=== PATIENT | female | born 1940 | race Hispanic/Latino ===

== ENCOUNTER 2018-12-23 02:01 | Emergency (ER) | payer MEDICARE ==
[~2018-12-23] VITALS: Ht 157.5 cm; Wt 108.9 kg
[~2018-12-23 02:01] MED LIST: ATIVAN0.5 MG PO; COUMADIN2.5 MG PO; METOPROLOL SUCC25 MG PO; NORVASC5 MG PO; PROTONIX40 MG/ML PO; TYLENOL PO; ZEGERID 20 MG1 EACH PO
[2018-12-23] MEDS ORDERED: ONDANSETRON HCL INJ 2MG/ML 2ML 2 MG/ML VIAL IV STA (02:10)
[2018-12-23] MEDS ORDERED: DIATRIZOATE MEGL/DIATRIZOA SOD 30 ML BTL PO ONE (02:35)
[2018-12-23 02:48] LABS: BASOPHILS # (AUTO) 0.1 (0.0-0.1); BASOPHILS % 0.7 % (0.0-1.0); EOSINOPHILS # (AUTO) 0.2 (0.0-0.4); EOSINOPHILS % 2.6 % (0.0-6.0); HEMATOCRIT 35.3 % (34.2-44.1); HEMOGLOBIN 12.3 g/dL (12.0-16.0); LYMPHOCYTES # (AUTO) 1.5 (1.0-3.2); LYMPHOCYTES % 19.2 % (18.0-39.1); MEAN CORPUSCULAR HEMOGLOBIN 32.4 pg (28-32); MEAN CORPUSCULAR HGB CONC 34.8 g/dL (31-35); MEAN CORPUSCULAR VOLUME 92.9 fL (81-99); MONOCYTES # (AUTO) 0.8 (0.2-0.8); MONOCYTES % 10.2 % (4.4-11.3); NEUTROPHILS # (AUTO) 5.4 (2.1-6.9); NEUTROPHILS % 66.9 % (38.7-80.0); PLATELET COUNT 170 x10e3/uL (140-360); RED CELL DISTRIBUTION WIDTH 12.7 % (11.7-14.4)
[2018-12-23 02:54] LABS: PARTIAL THROMBOPLASTIN TIME 63.8 seconds (23.8-35.5)
[2018-12-23 02:59] LABS: INR 2.66; PROTHROMBIN TIME 30.3 seconds (11.9-14.5)
[2018-12-23 03:00] LABS: ALANINE AMINOTRANSFERASE 13 IU/L (0-55); ALBUMIN 3.4 g/dL (3.5-5.0); ALBUMIN/GLOBULIN RATIO 1.2 (0.8-2.0); ALKALINE PHOSPHATASE 108 IU/L (40-150); AMYLASE 23 U/L (25-125); ANION GAP 13.2 mmol/L (8-16); BLOOD UREA NITROGEN 10 mg/dL (7-26); BUN/CREATININE RATIO 14 (6-25); CALCIUM 8.8 mg/dL (8.4-10.2); CARBON DIOXIDE 26 mmol/L (22-29); CHLORIDE 103 mmol/L (98-107); CREATININE, SERUM 0.69 mg/dL (0.57-1.11); EST GLOMERULAR FILTRATION RATE > 60 ML/MIN (60-); GLUCOSE 128 mg/dL (74-118); LIPASE 10 U/L (8-78); POTASSIUM 3.2 mmol/L (3.5-5.1); SODIUM 139 mmol/L (136-145)
[2018-12-23] MEDS ORDERED: SODIUM CHLORIDE 0.9% 50ML 50 ML ONE (03:26)
[2018-12-23] MEDS ORDERED: IOPAMIDOL 370 MG/ML 200 ML INFUS..BTL INJ ONE (03:26)
[2018-12-23 03:49] LABS: CLARITY,URINE HAZY (CLEAR); COLOR,URINE YELLOW (YELLOW)
[2018-12-23 03:50] LABS: BACTERIA,URINE RARE /HPF; BILIRUBIN,URINE NEGATIVE (NEGATIVE); EPITHELIAL CELLS,URINE FEW /LPF; KETONES,URINE NEGATIVE (NEGATIVE); LEUKOCYTE ESTERASE ,URINE TRACE (NEGATIVE); NITRITE,URINE NEGATIVE (NEGATIVE); PROTEIN,URINE DIPSTICK TRACE (NEGATIVE); RBC,URINE 0-5 /HPF (0-5); TRANSITIONAL EPI CELLS,URINE FEW; URINE UROBILINOGEN 0.2 mg/dL (0.2 - 1); WBC,URINE (MAN) 0-5 /HPF (0-5)
--- NOTE | 2018-12-23 04:01 | NUR ---
PATIENT ROUNDS- PATIENT IN BED IN NO DISTRESS, CALL BUTTON IN REACH, BED LOW
--- NOTE | 2018-12-23 04:12 | Diagnostic Imaging Report ---
EXAM: CT Abdomen and Pelvis WITH contrast INDICATION: ^left abdominal pain ^[id number] ^0330 ^Y COMPARISON: CT dated 03/08/2014 TECHNIQUE: Abdomen and pelvis were scanned utilizing a multidetector helical scanner from the lung base to the pubic symphysis after administration of IV contrast. Coronal and sagittal reformations were obtained. Dose modulation, iterative reconstruction, and/or weight based adjustment of the mA/kV was utilized to reduce the radiation dose to as low as reasonably achievable. Routine protocol was performed. Scan was performed when during portal venous phase. IV CONTRAST: 100 mL of Isovue-370 ORAL CONTRAST: Gastroview COMPLICATIONS: None RADIATION DOSE: Total DLP: 868.71 mGy*cm Estimated effective dose: (DLP x 0.015 x size factor) mSv CTDIvol has been reviewed. It is below the limits set by the Radiation Protocol Committee (RPC). FINDINGS: LINES and TUBES: None. LOWER THORAX: Cardiomegaly. Otherwise, unremarkable. HEPATOBILIARY: No focal hepatic lesions. No biliary ductal dilation. GALLBLADDER: Absent. SPLEEN: Multiple hypodensities are again seen. No splenomegaly. PANCREAS: No focal masses or ductal dilatation. Fatty involution of the pancreas. ADRENALS: No adrenal nodules KIDNEYS/URETERS: Kidneys enhance symmetrically. No hydronephrosis. No cystic or solid mass lesions. No stones. GI TRACT: No abnormal distention, wall thickening, or evidence of bowel obstruction. Scattered colonic diverticula with mild pericolonic fat stranding in left lower quadrant/upper pelvis (series 2, image 70). Appendix is normal. PELVIC ORGANS/BLADDER: Unremarkable. LYMPH NODES: No lymphadenopathy. VESSELS: Unremarkable. Infrarenal IVC filter in place. PERITONEUM / RETROPERITONEUM: No free air or fluid. BONES: Unchanged mild anterior wedging of L3 vertebral body. Small fat-containing umbilical hernia with a new nodule within hernia sac, measuring 1.6 cm (series 2, image 64). SOFT TISSUES: Unremarkable. IMPRESSION: 1. Colonic diverticulosis with uncomplicated mild left lower quadrant diverticulitis. 2. Again seen multiple indeterminate splenic hypodensities. 3. New umbilical nodule, which can be further evaluated with ultrasound or fine needle aspiration. Signed by: Dr. Zach Devries MD on 12/23/2018 4:09 AM
== END 2018-12-23 04:38 | disposition home or self-care (01) ==
LOC: ER 02:01
DX: R10.32 Left lower quadrant pain (principal); R11.2 Nausea with vomiting, unspecified; K57.32 Diverticulitis of large intestine without perforation or abscess without bleeding; Z86.718 Personal history of other venous thrombosis and embolism
CPT/HCPCS: 36415; 74177; 80053; 81001; 82150; 83690; 85025; 85610; 85730; 99284; Q9967

== ENCOUNTER 2020-02-11 08:20 | Emergency (ER) | payer MEDICARE ==
[~2020-02-11] VITALS: Ht 157.5 cm; Wt 108.9 kg
--- OUTSIDE RECORDS SUMMARY | 2020-02-11 08:23 | XMS REPORT ---
Author Author [facility] Address Unknown Phone Unavailable Care Team Providers Care Civil Manager Name Role Phone Bernice COX Unavailable Unavailable Problems This patient has no known problems. Allergies, Adverse Reactions, Alerts This patient has no known allergies or adverse reactions. Medications This patient has no known medications. Results Test Description Test Time Test Comments Text Results Atomic Results Result Comments CT ABDOMEN/PELVIS W 2018-12-23 03:54:00 [facility] [address] [address] Patient Name: SHAR BARRETO MR #: [id number] : 1940 Age/Sex: 78/F Req #: [id number] Adm Physician: Ordered by: BLADIMIR COX MD Report #: [id number] Location: ER Room/Bed: Procedure: [id number] CT/CT ABDOMEN/PELVIS W Exam Date: 12/23/18 Exam Time: 033 REPORT STATUS: Signed EXAM: CT Abdomen and Pelvis WITH contrast INDICATION: left abdominal pain [id number] 0330 Y COMPARISON: CT dated 03/08/2014 TECHNIQUE: Abdomen and pelvis were scanned utilizing a multidetector helical scanner from the lung base to the pubic symphysis after administration of IV contrast. Coronal and sagittal reformations were obtained. Dose modulation, iterative reconstruction, and/or weight based adjustment of the mA/kV was utilized to reduce the radiation dose to as low as reasonably achievable. Routine protocol was performed. Scan was performed when during portal venous phase. IV CONTRAST: 100 mL of Isovue-370 ORAL CONTRAST: Gastroview COMPLICATIONS: None RADIATION DOSE: Total DLP: 868.71 mGy*cm Estimated effective dose: (DLP x 0.015 x size factor) mSv CTDIvol has been reviewed. It is below the limits set by the Radiation Protocol Committee (RPC). FINDINGS: LINES and TUBES: None. LOWER THORAX: Cardiomegaly. Otherwise, unremark able. HEPATOBILIARY: No focal hepatic lesions. No biliary ductal dilation. GALLBLADDER: Absent. SPLEEN: Multiple hypodensities are again seen. No splenomegaly. PANCREAS: No focal masses or ductal dilatation. Fatty involution of the pancreas. ADRENALS: No adrenal nodules KIDNEYS/URETERS: Kidneys enhance symmetrically. No hydronephrosis. No cystic or solid mass lesions. No stones. GI TRACT: No abnormal distention, wall thickening, or evidence of bowel obstruction. Scattered colonic diverticula with mild pericolonic fat stranding in left lower quadrant/upper pelvis (series 2, image 70). Appendix is normal. PELVIC ORGANS/BLADDER: Unremarkable. LYMPH NODES: No lymphadenopathy. VESSELS: Unremarkable. Infrarenal IVC filter in place. PERITONEUM / RETROPERITONEUM: No free air or fluid. BONES: Unchanged mild anterior wedging of L3 vertebral body. Small fat-containing umbilical hernia with a new nodule within hernia sac, measuring 1.6 cm (series 2, image 64). SOFT TISSUES: Unremarkable. IMPRESSION: 1. Colonic diverticulosis with uncomplicated mild left lower quadrant diverticulitis. 2. Again seen multiple indeterminate splenic hypodensities. 3. New umbilical nodule, which can be further evaluated with ultrasound or fine needle aspiration. Signed by: Dr. Zach Devries MD on 12/23/2018 4:09 AM Dictated By: ZACH DEVRIES MD 8 Transcribed By: ALEXANDER on 12/23/18408 COPY TO: BLADIMIR COX MD
[2020-02-11 08:58] LABS: BASOPHILS # (AUTO) 0.1 (0.0-0.1); BASOPHILS % 0.7 % (0.0-1.0); EOSINOPHILS # (AUTO) 0.2 (0.0-0.4); EOSINOPHILS % 2.6 % (0.0-6.0); HEMATOCRIT 42.7 % (34.2-44.1); HEMOGLOBIN 14.5 g/dL (12.0-16.0); LYMPHOCYTES # (AUTO) 2.3 (1.0-3.2); LYMPHOCYTES % 30.2 % (18.0-39.1); MEAN CORPUSCULAR HEMOGLOBIN 31.7 pg (28-32); MEAN CORPUSCULAR VOLUME 93.2 fL (81-99); MONOCYTES # (AUTO) 0.7 (0.2-0.8); MONOCYTES % 8.9 % (4.4-11.3); NEUTROPHILS # (AUTO) 4.4 (2.1-6.9); NEUTROPHILS % 57.5 % (38.7-80.0); PLATELET COUNT 195 x10e3/uL (140-360); RED BLOOD COUNT 4.58 x10e6/uL (3.6-5.1)
[2020-02-11 09:03] LABS: CLARITY,URINE SL CLOUDY (CLEAR); COLOR,URINE YELLOW (YELLOW)
[2020-02-11 09:04] LABS: BILIRUBIN,URINE SMALL (NEGATIVE); KETONES,URINE NEGATIVE (NEGATIVE); LEUKOCYTE ESTERASE ,URINE NEGATIVE (NEGATIVE); NITRITE,URINE NEGATIVE (NEGATIVE); PROTEIN,URINE DIPSTICK 2+ (NEGATIVE); URINE UROBILINOGEN 0.2 mg/dL (0.2 - 1)
[2020-02-11 09:14] LABS: BACTERIA,URINE MODERATE /HPF; EPITHELIAL CELLS,URINE MANY /LPF; RBC,URINE 0-5 /HPF (0-5)
[2020-02-11 09:17] LABS: ALANINE AMINOTRANSFERASE 13 IU/L (0-55); ALBUMIN 3.7 g/dL (3.5-5.0); ALBUMIN/GLOBULIN RATIO 1.1 (0.8-2.0); ALKALINE PHOSPHATASE 127 IU/L (40-150); ANION GAP 12.5 mmol/L (8-16); BLOOD UREA NITROGEN 15 mg/dL (7-26); BUN/CREATININE RATIO 20 (6-25); CARBON DIOXIDE 29 mmol/L (22-29); CHLORIDE 105 mmol/L (98-107); CREATININE, SERUM 0.75 mg/dL (0.57-1.11); EST GLOMERULAR FILTRATION RATE > 60 ML/MIN (60-); GLUCOSE 112 mg/dL (74-118); POTASSIUM 3.5 mmol/L (3.5-5.1); SODIUM 143 mmol/L (136-145)
[2020-02-11] MEDS ORDERED: PANTOPRAZOLE 40 MG 10ML VIAL IV STA (09:28)
[2020-02-11] MEDS ORDERED: ONDANSETRON HCL INJ 2MG/ML 2ML 2 MG/ML VIAL IV STA (09:28)
[2020-02-11] MEDS ORDERED: SODIUM CHLORIDE 0.9% 1000ML 1,000 ML IV SCH (09:30)
--- NOTE | 2020-02-11 10:28 | Diagnostic Imaging Report ---
EXAM: CT Abdomen and Pelvis WITH contrast INDICATION: Right lower quadrant abdominal pain, query appendicitis. ^R/O APPY ^[id number] ^0953 COMPARISON: CT abdomen/pelvis 12/23/2018. TECHNIQUE: Abdomen and pelvis were scanned utilizing a multidetector helical scanner from the lung base to the pubic symphysis after administration of IV contrast. Coronal and sagittal reformations were obtained. Dose modulation, iterative reconstruction, and/or weight based adjustment of the mA/kV was utilized to reduce the radiation dose to as low as reasonably achievable. Routine protocol was performed. Scan was performed when during portal venous phase. IV CONTRAST: 100 mL of Isovue-370 ORAL CONTRAST: None COMPLICATIONS: None RADIATION DOSE: Total DLP: 860.3 mGy*cm Estimated effective dose: (DLP x 0.015 x size factor) mSv CTDIvol has been reviewed. It is below the limits set by the Radiation Protocol Committee (RPC). FINDINGS: LINES and TUBES: None. LOWER THORAX: Mild cardiomegaly. Small hiatal hernia. HEPATOBILIARY: No focal hepatic lesions. No biliary ductal dilation. GALLBLADDER: Absent. SPLEEN: Multiple hypodensities are again seen. No splenomegaly. PANCREAS: No focal masses or ductal dilatation. Fatty atrophy. ADRENALS: No adrenal nodules KIDNEYS/URETERS: Kidneys enhance symmetrically. No hydronephrosis. No cystic or solid mass lesions. No stones. GI TRACT: No abnormal distention, wall thickening, or evidence of bowel obstruction. Scattered colonic diverticula with trace perisigmoid colonic stranding pm series 2, image 70. Appendix is normal. PELVIC ORGANS/BLADDER: Partially decompressed. LYMPH NODES: No lymphadenopathy. VESSELS: Infrarenal IVC filter in place. PERITONEUM / RETROPERITONEUM: No free air or fluid. BONES: Interval development of mild loss of anterior vertebral body height at L2. Unchanged mild anterior wedging of L3 vertebral body. Small fat-containing umbilical hernia with an enlarging nodule, measuring 2.5 cm, previously 1.4 cm. SOFT TISSUES: Unremarkable. IMPRESSION: Normal appendix. Sigmoid colonic diverticulosis with minimal surrounding stranding, which may represent mild diverticulitis. Interval development of mild loss of anterior vertebral body height at L2. Suggest clinical correlation. Again seen multiple indeterminate splenic hypodensities. Enlarging umbilical nodule, which can be further evaluated with ultrasound or fine needle aspiration. Signed by: Dr. Janusz Barbour MD on 02/11/2020 10:25 AM
[2020-02-11 10:42] VITALS: BP 145/53
[2020-02-11] MEDS ORDERED: KETOROLAC TROMETHAMINE 30 MG/ML VIAL IV STA (11:04)
[2020-02-11] MEDS ORDERED: KETOROLAC TROMETHAMINE 30 MG/ML VIAL IM STA (11:05)
[2020-02-11] MEDS ORDERED: SODIUM CHLORIDE 0.9% 50ML 50 ML ONE (12:56)
[2020-02-11] MEDS ORDERED: IOPAMIDOL 370 MG/ML 200 ML INFUS..BTL INJ ONE (12:57)
== END 2020-02-11 10:53 | disposition home or self-care (01) ==
LOC: ER 08:20
DX: R10.31 Right lower quadrant pain (principal); R11.0 Nausea; R10.84 Generalized abdominal pain; K57.31 Diverticulosis of large intestine without perforation or abscess with bleeding
CPT/HCPCS: 36415; 74177; 80053; 81001; 85025; 99284; C9113; J1885; J2405; J7030; Q9967

== ENCOUNTER 2020-02-24 16:01 | Emergency (ER) | payer MEDICARE ==
[~2020-02-24] VITALS: Ht 157.5 cm; Wt 108.9 kg
[2020-02-24] MEDS ORDERED: SODIUM CHLORIDE 0.9% 500ML 500 ML IV STA (17:16)
[2020-02-24] MEDS ORDERED: ONDANSETRON HCL INJ 2MG/ML 2ML 2 MG/ML VIAL IV STA (17:16)
[2020-02-24 17:29] LABS: BASOPHILS # (AUTO) 0.1 (0.0-0.1); BASOPHILS % 0.6 % (0.0-1.0); EOSINOPHILS # (AUTO) 0.2 (0.0-0.4); EOSINOPHILS % 2.5 % (0.0-6.0); HEMATOCRIT 39.6 % (34.2-44.1); HEMOGLOBIN 13.1 g/dL (12.0-16.0); LYMPHOCYTES # (AUTO) 2.5 (1.0-3.2); LYMPHOCYTES % 29.2 % (18.0-39.1); MEAN CORPUSCULAR HEMOGLOBIN 31.5 pg (28-32); MEAN CORPUSCULAR HGB CONC 33.1 g/dL (31-35); MEAN CORPUSCULAR VOLUME 95.2 fL (81-99); MONOCYTES # (AUTO) 0.8 (0.2-0.8); MONOCYTES % 8.9 % (4.4-11.3); NEUTROPHILS # (AUTO) 5.1 (2.1-6.9); NEUTROPHILS % 58.5 % (38.7-80.0); PLATELET COUNT 222 x10e3/uL (140-360); RED BLOOD COUNT 4.16 x10e6/uL (3.6-5.1); RED CELL DISTRIBUTION WIDTH 13.1 % (11.7-14.4)
[2020-02-24 17:38] LABS: CLARITY,URINE HAZY (CLEAR); COLOR,URINE YELLOW (YELLOW); LEUKOCYTE ESTERASE ,URINE NEGATIVE (NEGATIVE); NITRITE,URINE NEGATIVE (NEGATIVE); PROTEIN,URINE DIPSTICK TRACE (NEGATIVE)
[2020-02-24 17:39] LABS: BILIRUBIN,URINE NEGATIVE (NEGATIVE); KETONES,URINE NEGATIVE (NEGATIVE); URINE UROBILINOGEN 0.2 mg/dL (0.2 - 1)
[2020-02-24 17:40] LABS: ALANINE AMINOTRANSFERASE 14 IU/L (0-55); ALBUMIN 3.5 g/dL (3.5-5.0); ALBUMIN/GLOBULIN RATIO 1.1 (0.8-2.0); ALKALINE PHOSPHATASE 106 IU/L (40-150); ANION GAP 13.4 mmol/L (8-16); BLOOD UREA NITROGEN 18 mg/dL (7-26); BUN/CREATININE RATIO 21 (6-25); CALCIUM 9.2 mg/dL (8.4-10.2); CARBON DIOXIDE 29 mmol/L (22-29); CHLORIDE 104 mmol/L (98-107); CREATININE, SERUM 0.86 mg/dL (0.57-1.11); EST GLOMERULAR FILTRATION RATE > 60 ML/MIN (60-); GLUCOSE 135 mg/dL (74-118); POTASSIUM 3.4 mmol/L (3.5-5.1); SODIUM 143 mmol/L (136-145)
[2020-02-24 17:45] LABS: BACTERIA,URINE FEW /HPF; EPITHELIAL CELLS,URINE FEW /LPF; RBC,URINE 0-5 /HPF (0-5); WBC,URINE (MAN) 0-5 /HPF (0-5)
== END 2020-02-24 18:54 | disposition home or self-care (01) ==
LOC: ER 16:01
DX: R10.31 Right lower quadrant pain (principal); R10.32 Left lower quadrant pain; M54.5 Low back pain; G89.29 Other chronic pain; R11.2 Nausea with vomiting, unspecified; N30.90 Cystitis, unspecified without hematuria; I10 Essential (primary) hypertension; K21.9 Gastro-esophageal reflux disease without esophagitis; Z86.718 Personal history of other venous thrombosis and embolism
CPT/HCPCS: 36415; 80053; 81001; 85025; 87086; 99284; J2405; J7040

== ENCOUNTER 2021-03-16 14:16 | Inpatient (IN) | payer MEDICARE ==
[~2021-03-16] VITALS: Ht 157.5 cm; Wt 108.2 kg
[2021-03-16 17:01] LABS: BASOPHILS % 0.4 % (0.0-1.0); EOSINOPHILS # (AUTO) 0.1 (0.0-0.4); EOSINOPHILS % 0.6 % (0.0-6.0); HEMATOCRIT 38.7 % (34.2-44.1); HEMOGLOBIN 12.9 g/dL (12.0-16.0); MEAN CORPUSCULAR HEMOGLOBIN 31.7 pg (28-32); MEAN CORPUSCULAR HGB CONC 33.3 g/dL (31-35); MEAN CORPUSCULAR VOLUME 95.1 fL (81-99); MONOCYTES # (AUTO) 0.7 (0.2-0.8); MONOCYTES % 6.3 % (4.4-11.3); NEUTROPHILS # (AUTO) 9.1 (2.1-6.9); NEUTROPHILS % 83.4 % (38.7-80.0); PLATELET COUNT 187 x10e3/uL (140-360); RED BLOOD COUNT 4.07 x10e6/uL (3.6-5.1); RED CELL DISTRIBUTION WIDTH 13.1 % (11.7-14.4)
[2021-03-16 17:25] LABS: ALBUMIN 3.5 g/dL (3.5-5.0); ALBUMIN/GLOBULIN RATIO 1.1 (0.8-2.0); ANION GAP 15.3 mmol/L (8-16); CALCIUM 8.9 mg/dL (8.4-10.2); CREATININE, SERUM 0.98 mg/dL (0.57-1.11); POTASSIUM 4.3 mmol/L (3.5-5.1)
[2021-03-16] MEDS ORDERED: ASPIRIN 81 MG CHEW TAB PO ONE (18:00)
[2021-03-16 19:38] LABS: CREATINE KINASE MB 0.5 ng/mL (0-5.0)
[2021-03-16 20:55] LABS: CLARITY,URINE CLEAR (CLEAR); COLOR,URINE YELLOW (YELLOW)
[2021-03-16 20:56] LABS: KETONES,URINE TRACE (NEGATIVE); LEUKOCYTE ESTERASE ,URINE NEGATIVE (NEGATIVE); NITRITE,URINE NEGATIVE (NEGATIVE); PROTEIN,URINE DIPSTICK 1+ (NEGATIVE); URINE UROBILINOGEN 0.2 mg/dL (0.2 - 1)
[2021-03-16 21:15] LABS: BACTERIA,URINE FEW /HPF; EPITHELIAL CELLS,URINE MODERATE /LPF
[2021-03-16] MEDS ORDERED: MAGNESIUM/ALUMINUM/SIMETHICONE 30 ML UDC ONE (21:15)
[2021-03-16] MEDS ORDERED: LIDOCAINE VISC 2% SOLN 15 ML UDC PO ONE (21:15)
[2021-03-16] MEDS ORDERED: LIDOCAINE VISC 2% SOLN 15 ML UDC ONE (21:15)
[2021-03-16] MEDS ORDERED: BELLADONNA ALK/PHENOBARBITAL 5 ML UDC PO ONE (21:15)
[2021-03-16] MEDS ORDERED: MAGNESIUM/ALUMINUM/SIMETHICONE 30 ML UDC PO ONE (21:15)
[2021-03-16] MEDS ORDERED: DONNATAL/LIDOCAINE/MAALOX 30 ML SUSP PO ONE (21:15)
[2021-03-16] MEDS ORDERED: BELLADONNA ALK/PHENOBARBITAL 5 ML UDC ONE (21:15)
[2021-03-16 21:16] LABS: RBC,URINE 0-5 /HPF (0-5)
[2021-03-16] MEDS ORDERED: SODIUM CHLORIDE 0.9% 1000ML 1,000 ML ONE (22:32)
[2021-03-16] MEDS ORDERED: IOPAMIDOL 370 MG/ML 200 ML INFUS..BTL INJ ONE (22:35)
[2021-03-16] MEDS ORDERED: SODIUM CHLORIDE 0.9% 50ML 50 ML ONE (22:35)
[2021-03-16] MEDS ORDERED: DIATRIZOATE MEGL/DIATRIZOA SOD 30 ML BTL PO ONE (22:46)
[2021-03-17 02:23] LABS: CREATINE KINASE MB 0.9 ng/mL (0-5.0)
[2021-03-17] MEDS ORDERED: ASPIRIN 81 MG CHEW TAB PO ONE (02:45)
[2021-03-17] MEDS ORDERED: LORAZEPAM 1 MG TAB PO ONE (04:00)
[2021-03-17 07:34] LABS: INR 2.59; PROTHROMBIN TIME 28.5 seconds (11.9-14.5)
[2021-03-17 08:51] LABS: CREATINE KINASE MB 2.7 ng/mL (0-5.0)
[2021-03-17] MEDS: PANTOPRAZOLE SOD 40 MG TABEC PO SCH (10:14)
[2021-03-17] MEDS: METOPROLOL SUCCINATE 25 MG TAB XL PO SCH (10:14)
[2021-03-17] MEDS: AMLODIPINE BESYLATE 5 MG TAB PO SCH (10:14)
[2021-03-17] MEDS ORDERED: OXYBUTYNIN CHLO15 MG PO (10:15)
[2021-03-17] MEDS ORDERED: OXYBUTYNIN CHLORIDE PO SCH (10:30)
[2021-03-17] MEDS: OXYBUTYNIN CHLORIDE XL 5 MG TAB PO SCH (11:21)
[2021-03-17 13:58] VITALS: BP 136/57
[2021-03-17 14:02] VITALS: BP 136/57
[2021-03-17 14:37] LABS: CREATINE KINASE MB 3.3 ng/mL (0-5.0)
[2021-03-17 16:15] VITALS: BP 89/38
[2021-03-17 16:16] VITALS: BP 110/38
[2021-03-17] MEDS ORDERED: WARFARIN SOD 2.5 MG TAB PO SCH (17:00)
[2021-03-17 18:52] LABS: CREATINE KINASE MB 2.9 ng/mL (0-5.0)
[2021-03-17 20:10] VITALS: BP 136/53
[2021-03-17] MEDS: LORAZEPAM 0.5 MG TAB PO PRN (23:41)
[2021-03-17 23:52] VITALS: BP 147/64
[2021-03-18] VITALS (8 sets, daily range): BP systolic 111–147; BP diastolic 43–64
[2021-03-18 05:18] LABS: CHOL/HDL RATIO 3.2 (3.0-3.6)
[2021-03-18] MEDS: PANTOPRAZOLE SOD 40 MG TABEC PO SCH (08:34)
[2021-03-18] MEDS: AMLODIPINE BESYLATE 5 MG TAB PO SCH (08:35)
[2021-03-18] MEDS: METOPROLOL SUCCINATE 25 MG TAB XL PO SCH (08:36)
[2021-03-18] MEDS ORDERED: POTASSIUM CHLORIDE 20 MEQ TAB CR PO PRN (13:15)
[2021-03-18] MEDS ORDERED: HYDRALAZINE HCL 20 MG/ML VIAL IV PRN (13:15)
[2021-03-18] MEDS ORDERED: DEXTROSE 50% SYRINGE 50 ML IV PRN (13:15)
[2021-03-18] MEDS ORDERED: ONDANSETRON HCL INJ 2MG/ML 2ML 2 MG/ML VIAL IV PRN (13:15)
[2021-03-18] MEDS ORDERED: ACETAMINOPHEN 325 MG TAB PO PRN (13:15)
[2021-03-18] MEDS ORDERED: DOCUSATE SODIUM 100 MG CAP PO PRN (13:15)
[2021-03-18] MEDS: MIDODRINE 2.5 MG TAB PO SCH (17:12)
[2021-03-18] MEDS: OXYBUTYNIN CHLORIDE XL 5 MG TAB PO SCH (20:21)
[2021-03-18] MEDS: LORAZEPAM 0.5 MG TAB PO PRN (21:25)
[2021-03-19] VITALS (8 sets, daily range): BP systolic 135–157; BP diastolic 51–78
[2021-03-19 04:55] LABS: BASOPHILS % 0.5 % (0.0-1.0); EOSINOPHILS # (AUTO) 0.2 (0.0-0.4); EOSINOPHILS % 3.7 % (0.0-6.0); HEMATOCRIT 35.2 % (34.2-44.1); HEMOGLOBIN 11.8 g/dL (12.0-16.0); LYMPHOCYTES # (AUTO) 1.9 (1.0-3.2); LYMPHOCYTES % 30.6 % (18.0-39.1); MEAN CORPUSCULAR HEMOGLOBIN 31.5 pg (28-32); MEAN CORPUSCULAR HGB CONC 33.5 g/dL (31-35); MEAN CORPUSCULAR VOLUME 93.9 fL (81-99); MONOCYTES # (AUTO) 0.6 (0.2-0.8); MONOCYTES % 9.2 % (4.4-11.3); NEUTROPHILS # (AUTO) 3.5 (2.1-6.9); NEUTROPHILS % 55.5 % (38.7-80.0); PLATELET COUNT 149 x10e3/uL (140-360); RED BLOOD COUNT 3.75 x10e6/uL (3.6-5.1); RED CELL DISTRIBUTION WIDTH 12.6 % (11.7-14.4)
[2021-03-19 05:19] LABS: ANION GAP 11.5 mmol/L (8-16); BLOOD UREA NITROGEN 16 mg/dL (7-26); BUN/CREATININE RATIO 25 (6-25); CALCIUM 8.4 mg/dL (8.4-10.2); CARBON DIOXIDE 28 mmol/L (22-29); CHLORIDE 105 mmol/L (98-107); CREATININE, SERUM 0.64 mg/dL (0.57-1.11); EST GLOMERULAR FILTRATION RATE > 60 ML/MIN (60-); GLUCOSE 105 mg/dL (74-118); POTASSIUM 3.5 mmol/L (3.5-5.1); SODIUM 141 mmol/L (136-145)
[2021-03-19] MEDS ORDERED: PANTOPRAZOLE SOD 40 MG TABEC PO SCH (07:30)
[2021-03-19] MEDS: MIDODRINE 2.5 MG TAB PO SCH ×3 (09:05→16:18)
[2021-03-19] MEDS: PANTOPRAZOLE SOD 40 MG TABEC PO SCH (09:05)
[2021-03-19] MEDS: METOPROLOL SUCCINATE 25 MG TAB XL PO SCH (09:06)
[2021-03-19] MEDS: AMLODIPINE BESYLATE 5 MG TAB PO SCH (09:06)
[2021-03-19] MEDS ORDERED: MIDAZOLAM HCL 2 MG/2 ML VIAL ONE (09:15)
[2021-03-19] MEDS ORDERED: SODIUM CHLORIDE 0.9% 1000ML 0 ML ONE (09:16)
[2021-03-19] MEDS ORDERED: FENTANYL CITRATE/PF 100MCG/2 ML INJ ONE (09:16)
[2021-03-19] MEDS ORDERED: IOPAMIDOL 370 MG/ML 200 ML INFUS..BTL INJ ONE (09:16)
[2021-03-19] MEDS ORDERED: LIDOCAINE HCL 2% LOCAL 20 ML VIAL ONE (09:16)
[2021-03-19] MEDS ORDERED: HEPARIN SOD/SOD CHLORIDE 0 ML ONE (09:16)
[2021-03-19 10:50] LABS: INR 1.74; PROTHROMBIN TIME 21.1 seconds (11.9-14.5)
[2021-03-19] MEDS: OXYBUTYNIN CHLORIDE XL 5 MG TAB PO SCH (21:10)
[2021-03-20] VITALS (14 sets, daily range): BP systolic 107–175; BP diastolic 49–85
[2021-03-20 05:20] LABS: INR 1.4; PROTHROMBIN TIME 17.8 seconds (11.9-14.5)
[2021-03-20] MEDS: PANTOPRAZOLE SOD 40 MG TABEC PO SCH (07:30)
[2021-03-20] MEDS: MIDODRINE 2.5 MG TAB PO SCH ×3 (08:00→16:48)
[2021-03-20] MEDS ORDERED: FENTANYL CITRATE/PF 100MCG/2 ML INJ ONE (08:14)
[2021-03-20] MEDS ORDERED: MIDAZOLAM HCL 2 MG/2 ML VIAL ONE ×2 (08:14→10:30)
[2021-03-20] MEDS ORDERED: LIDOCAINE HCL 2% LOCAL 20 ML VIAL ONE (08:15)
[2021-03-20] MEDS ORDERED: IOPAMIDOL 370 MG/ML 200 ML INFUS..BTL INJ ONE (08:15)
[2021-03-20] MEDS ORDERED: SODIUM CHLORIDE 0.9% 1000ML 1,000 ML ONE (08:15)
[2021-03-20] MEDS ORDERED: HEPARIN SOD/SOD CHLORIDE 2,000 ML ONE (08:15)
[2021-03-20] MEDS: AMLODIPINE BESYLATE 5 MG TAB PO SCH (14:00)
[2021-03-20] MEDS ORDERED: LACTULOSE SYRUP 20 GM/30 ML UDC PO ONE (14:45)
[2021-03-20] MEDS: LORAZEPAM 0.5 MG TAB PO PRN (20:29)
[2021-03-20] MEDS: OXYBUTYNIN CHLORIDE XL 5 MG TAB PO SCH (20:30)
[2021-03-21] VITALS: BP 152/57
[2021-03-21 04:00] VITALS: BP 135/69
[2021-03-21 07:55] VITALS: BP 144/66
[2021-03-21] MEDS: AMLODIPINE BESYLATE 5 MG TAB PO SCH (08:36)
[2021-03-21] MEDS: PANTOPRAZOLE SOD 40 MG TABEC PO SCH (08:36)
[2021-03-21] MEDS: MIDODRINE 2.5 MG TAB PO SCH ×3 (08:36→16:00)
[2021-03-21 10:06] VITALS: BP 144/66
[2021-03-21 12:01] VITALS: BP 149/58
== END 2021-03-21 16:35 | disposition home or self-care (01) | DRG 281 ==
LOC: ER 18:39 → OBSVTOIN 03-17 03:11 → ERHOLD 03-17 03:11 → IMCU 03-17 14:00 → MED/SURG2 03-17 23:30 → MED/SURG 03-19 15:09
PROVIDERS: ADMIT Internal Medicine; ATTEND Internal Medicine
PROC: 4A023N7 Measurement of Cardiac Sampling and Pressure, Left Heart, Percutaneous Approach (ICD-10-PCS; principal; 2021-03-20)
PROC: B2111ZZ Fluoroscopy of Multiple Coronary Arteries using Low Osmolar Contrast (ICD-10-PCS; 2021-03-20)
DX: I21.4 Non-ST elevation (NSTEMI) myocardial infarction (principal); Z68.41 Body mass index [BMI] 40.0-44.9, adult; Z86.718 Personal history of other venous thrombosis and embolism; Z79.01 Long term (current) use of anticoagulants; I10 Essential (primary) hypertension; E11.9 Type 2 diabetes mellitus without complications; E78.5 Hyperlipidemia, unspecified; E66.01 Morbid (severe) obesity due to excess calories; K59.00 Constipation, unspecified; F41.9 Anxiety disorder, unspecified; Z20.822 Contact with and (suspected) exposure to COVID-19
CPT/HCPCS: 36415; 74177; 80048; 80053; 80061; 81001; 82550; 82553; 83036; 84484; 85025; 85610; 93005; 93306; 93454; 99152; 99284; C1887; J2001; J2250; J3010; J7030; Q9967; U0002

== ENCOUNTER 2021-05-15 00:37 | Observation (INO) | payer MEDICARE ==
[2021-05-15] VITALS (8 sets, daily range): BP systolic 139–165; BP diastolic 55–76
[~2021-05-15] VITALS: Ht 157.5 cm; Wt 108.0 kg
[~2021-05-15 00:37] MED LIST changes: +OXYBUTYNIN CHLO15 MG PO
[2021-05-15] MEDS ORDERED: DONNATAL/LIDOCAINE/MAALOX 30 ML SUSP PO STA (00:46)
[2021-05-15] MEDS ORDERED: LIDOCAINE VISC 2% SOLN 15 ML UDC PO ONE (01:00)
[2021-05-15] MEDS ORDERED: MAGNESIUM/ALUMINUM/SIMETHICONE 30 ML UDC PO ONE (01:00)
[2021-05-15] MEDS ORDERED: BELLADONNA ALK/PHENOBARBITAL 5 ML UDC PO SCH (01:00)
[2021-05-15 01:01] LABS: BASOPHILS # (AUTO) 0.1 (0.0-0.1); BASOPHILS % 0.8 % (0.0-1.0); EOSINOPHILS # (AUTO) 0.4 (0.0-0.4); HEMATOCRIT 37.9 % (34.2-44.1); HEMOGLOBIN 12.4 g/dL (12.0-16.0); LYMPHOCYTES # (AUTO) 4.1 (1.0-3.2); LYMPHOCYTES % 43.8 % (18.0-39.1); MEAN CORPUSCULAR HEMOGLOBIN 31.6 pg (28-32); MEAN CORPUSCULAR HGB CONC 32.7 g/dL (31-35); MEAN CORPUSCULAR VOLUME 96.4 fL (81-99); MONOCYTES % 10.4 % (4.4-11.3); NEUTROPHILS # (AUTO) 3.9 (2.1-6.9); NEUTROPHILS % 40.8 % (38.7-80.0); PLATELET COUNT 184 x10e3/uL (140-360); RED BLOOD COUNT 3.93 x10e6/uL (3.6-5.1); RED CELL DISTRIBUTION WIDTH 12.7 % (11.7-14.4)
[2021-05-15 01:24] LABS: CALCIUM 8.8 mg/dL (8.4-10.2); CREATININE, SERUM 0.95 mg/dL (0.57-1.11)
[2021-05-15] MEDS ORDERED: ASPIRIN 325 MG TAB PO ONE (01:30)
[2021-05-15 02:12] LABS: INR 1.92
[2021-05-15] MEDS ORDERED: ENOXAPARIN SODIUM INJ 100 MG/ML SYR SC STA (02:17)
[2021-05-15 02:25] LABS: CREATINE KINASE MB 0.7 ng/mL (0-5.0)
[2021-05-15 10:00] LABS: CREATINE KINASE MB 0.8 ng/mL (0-5.0)
[2021-05-15] MEDS ORDERED: ACETAMINOPHEN 325 MG TAB PO PRN (14:15)
[2021-05-15] MEDS ORDERED: HYDRALAZINE HCL 20 MG/ML VIAL IV PRN (14:15)
[2021-05-15] MEDS ORDERED: ONDANSETRON HCL INJ 2MG/ML 2ML 2 MG/ML VIAL IV PRN (14:15)
[2021-05-15] MEDS ORDERED: CEPACOL SORE THROAT LOZENGES PO PRN (15:30)
[2021-05-15] MEDS ORDERED: WARFARIN SOD 2.5 MG TAB PO SCH (17:00)
[2021-05-15] MEDS: SUCRALFATE 1 GM TAB PO SCH ×2 (17:05→21:01)
[2021-05-15 17:20] LABS: CREATINE KINASE MB 0.8 ng/mL (0-5.0)
[2021-05-15] MEDS ORDERED: LACTULOSE SYRUP 20 GM/30 ML UDC PO PRN (18:00)
[2021-05-15] MEDS ORDERED: OXYBUTYNIN CHLORIDE PO SCH (21:00)
[2021-05-15] MEDS: OXYBUTYNIN CHLORIDE XL 5 MG TAB PO SCH (21:01)
[2021-05-16] VITALS (8 sets, daily range): BP systolic 142–159; BP diastolic 47–70
[2021-05-16] MEDS ORDERED: METOCLOPRAMIDE HCL 10 MG/2ML VIAL IV STA (01:54)
[2021-05-16] MEDS ORDERED: PHYTONADIONE 10 MG/ML AMP IV ONE (02:45)
[2021-05-16] MEDS ORDERED: PHYTONADIONE 10MG/ML 20 MG in SODIUM CHLORIDE 0.9% 100 ML IV ONE (03:00)
[2021-05-16] MEDS ORDERED: SODIUM CHLORIDE 0.9% 100 ML ONE (03:16)
[2021-05-16] MEDS ORDERED: SODIUM CHLORIDE 0.9% 50ML 0 ML ONE (03:17)
[2021-05-16] MEDS: METOCLOPRAMIDE HCL 10 MG/2ML VIAL IV SCH ×4 (04:23→23:33)
[2021-05-16] MEDS: LORAZEPAM 0.5 MG TAB PO PRN (04:53)
[2021-05-16 06:16] LABS: BASOPHILS % 0.6 % (0.0-1.0); EOSINOPHILS # (AUTO) 0.3 (0.0-0.4); EOSINOPHILS % 5.7 % (0.0-6.0); HEMATOCRIT 34.6 % (34.2-44.1); HEMOGLOBIN 11.5 g/dL (12.0-16.0); LYMPHOCYTES # (AUTO) 1.9 (1.0-3.2); LYMPHOCYTES % 34.5 % (18.0-39.1); MEAN CORPUSCULAR HEMOGLOBIN 31.6 pg (28-32); MEAN CORPUSCULAR HGB CONC 33.2 g/dL (31-35); MEAN CORPUSCULAR VOLUME 95.1 fL (81-99); MONOCYTES # (AUTO) 0.5 (0.2-0.8); MONOCYTES % 9.2 % (4.4-11.3); NEUTROPHILS # (AUTO) 2.7 (2.1-6.9); NEUTROPHILS % 49.6 % (38.7-80.0); PLATELET COUNT 148 x10e3/uL (140-360); RED BLOOD COUNT 3.64 x10e6/uL (3.6-5.1); RED CELL DISTRIBUTION WIDTH 12.3 % (11.7-14.4)
[2021-05-16 06:27] LABS: INR 2.06; PROTHROMBIN TIME 24.3 seconds (11.9-14.5)
[2021-05-16 06:44] LABS: ANION GAP 8.5 mmol/L (8-16); CALCIUM 8.5 mg/dL (8.4-10.2); CREATININE, SERUM 0.7 mg/dL (0.57-1.11); POTASSIUM 3.5 mmol/L (3.5-5.1)
[2021-05-16] MEDS: SUCRALFATE 1 GM TAB PO SCH ×4 (07:30→20:23)
[2021-05-16] MEDS: METOPROLOL SUCCINATE 25 MG TAB XL PO SCH (09:00)
[2021-05-16] MEDS: AMLODIPINE BESYLATE 10 MG TAB PO SCH (09:00)
[2021-05-16] MEDS ORDERED: AMLODIPINE BESYLATE 5 MG TAB PO SCH (09:00)
[2021-05-16] MEDS ORDERED: LIDOCAINE HCL 2% LOCAL INJ 5 ML SDV VIAL INJ ONE (12:08)
[2021-05-16] MEDS ORDERED: PROPOFOL IV EMULSION 10 MG/ML 20 ML VIAL ONE (12:08)
[2021-05-16] MEDS ORDERED: FENTANYL CITRATE/PF 100MCG/2 ML INJ ONE (13:54)
[2021-05-16] MEDS ORDERED: KETAMINE HCL INJ 50 MG/ML 10 ML VIAL ONE (13:54)
[2021-05-16 15:24] LABS: INR 1.43; PROTHROMBIN TIME 18.2 seconds (11.9-14.5)
[2021-05-16] MEDS: OXYBUTYNIN CHLORIDE XL 5 MG TAB PO SCH (20:24)
[2021-05-17] MEDS: LORAZEPAM 0.5 MG TAB PO PRN (01:05)
[2021-05-17 01:24] VITALS: BP 141/46
[2021-05-17 05:29] VITALS: BP 128/62
[2021-05-17] MEDS: METOCLOPRAMIDE HCL 10 MG/2ML VIAL IV SCH ×2 (06:00→12:50)
[2021-05-17 08:05] VITALS: BP 139/54
[2021-05-17 08:30] VITALS: BP 139/54
[2021-05-17] MEDS: SUCRALFATE 1 GM TAB PO SCH ×2 (09:08→12:50)
[2021-05-17] MEDS: AMLODIPINE BESYLATE 10 MG TAB PO SCH (09:09)
[2021-05-17] MEDS: METOPROLOL SUCCINATE 25 MG TAB XL PO SCH (09:10)
[2021-05-17 11:44] VITALS: BP 149/64
[2021-05-17] MEDS ORDERED: SUCRALFATE1 GM PO (13:22)
[2021-05-17] MEDS ORDERED: PROTONIX20 MG PO (13:22)
== END 2021-05-17 14:23 | disposition home or self-care (01) ==
LOC: ER 01:07 → ERHOLD 01:59 → MED/SURG3 03:08
PROVIDERS: ADMIT Internal Medicine; ATTEND Internal Medicine
DX: K31.7 Polyp of stomach and duodenum (principal); K44.9 Diaphragmatic hernia without obstruction or gangrene; I10 Essential (primary) hypertension; F41.9 Anxiety disorder, unspecified; F32.9 Major depressive disorder, single episode, unspecified; Z86.718 Personal history of other venous thrombosis and embolism; Z79.01 Long term (current) use of anticoagulants; Z86.711 Personal history of pulmonary embolism; K21.9 Gastro-esophageal reflux disease without esophagitis; E66.01 Morbid (severe) obesity due to excess calories; Z68.41 Body mass index [BMI] 40.0-44.9, adult; D68.9 Coagulation defect, unspecified; R77.8 Other specified abnormalities of plasma proteins
CPT/HCPCS: 36415 ×2; 43239; 43248; 71045; 80048 ×2; 82550; 82553; 84484; 85025 ×2; 85610 ×2; 88305; 88312; 93005; 99284; C9113 ×3; G0378 ×3; J1650; J2001; J2704; J2765 ×2; J3010; J3430; J7050; 43450

== ENCOUNTER 2022-02-07 17:15 | Inpatient (IN) | payer MEDICARE ==
[2022-02-06] MEDS: OXYBUTYNIN CHLORIDE XL 5 MG TAB PO SCH (20:45)
[~2022-02-07] VITALS: Ht 152.4 cm; Wt 114.4 kg
[~2022-02-07 17:15] MED LIST changes: +PROTONIX20 MG PO; +SUCRALFATE1 GM PO
[2022-02-07] MEDS ORDERED: KETOROLAC TROMETHAMINE 30 MG/ML VIAL IV STA (17:29)
[2022-02-07] MEDS ORDERED: ACETAMINOPHEN 325 MG TAB PO ONE (17:30)
[2022-02-07] MEDS ORDERED: KETOROLAC TROMETHAMINE 30 MG/ML VIAL ONE (17:53)
[2022-02-07] MEDS ORDERED: ACETAMINOPHEN 325 MG TAB ONE ×2 (17:53→17:55)
[2022-02-07 17:55] LABS: BASOPHILS # (AUTO) 0.1 (0.0-0.1); BASOPHILS % 0.6 % (0.0-1.0); EOSINOPHILS # (AUTO) 0.2 (0.0-0.4); EOSINOPHILS % 2.1 % (0.0-6.0); HEMATOCRIT 35.4 % (34.2-44.1); HEMOGLOBIN 12.2 g/dL (12.0-16.0); LYMPHOCYTES % 17.9 % (18.0-39.1); MEAN CORPUSCULAR HEMOGLOBIN 31.9 pg (28-32); MEAN CORPUSCULAR HGB CONC 34.5 g/dL (31-35); MEAN CORPUSCULAR VOLUME 92.7 fL (81-99); MONOCYTES # (AUTO) 1.2 (0.2-0.8); MONOCYTES % 10.7 % (4.4-11.3); NEUTROPHILS # (AUTO) 7.5 (2.1-6.9); NEUTROPHILS % 68.5 % (38.7-80.0); PLATELET COUNT 188 x10e3/uL (140-360); RED BLOOD COUNT 3.82 x10e6/uL (3.6-5.1); RED CELL DISTRIBUTION WIDTH 12.6 % (11.7-14.4)
[2022-02-07 18:09] LABS: CLARITY,URINE HAZY (CLEAR); COLOR,URINE YELLOW (YELLOW)
[2022-02-07 18:10] LABS: KETONES,URINE NEGATIVE (NEGATIVE); LEUKOCYTE ESTERASE ,URINE NEGATIVE (NEGATIVE); NITRITE,URINE NEGATIVE (NEGATIVE); PROTEIN,URINE DIPSTICK 2+ (NEGATIVE); URINE UROBILINOGEN 1 mg/dL (0.2 - 1)
[2022-02-07 18:11] LABS: AMORPHOUS SEDIMENT,URINE FEW (FEW); BACTERIA,URINE FEW /HPF; EPITHELIAL CELLS,URINE FEW /LPF; RBC,URINE 0-5 /HPF (0-5)
[2022-02-07 18:24] LABS: ALBUMIN 3.1 g/dL (3.5-5.0); ALBUMIN/GLOBULIN RATIO 0.9 (0.8-2.0); ANION GAP 12.4 mmol/L (8-16); CALCIUM 8.3 mg/dL (8.4-10.2); CREATININE, SERUM 0.83 mg/dL (0.57-1.11); POTASSIUM 3.4 mmol/L (3.5-5.1)
[2022-02-07 18:28] LABS: B-TYPE NATRIURETIC PEPTIDE2 296.8 pg/mL (0-100)
[2022-02-07] MEDS ORDERED: CEFTRIAXONE 1 GM VIAL IV ONE (19:00)
[2022-02-07] MEDS ORDERED: ASPIRIN 325 MG TAB PO ONE (19:00)
[2022-02-07] MEDS ORDERED: SODIUM CHLORIDE 0.9% 1000ML 1,000 ML IV SCH (19:00)
[2022-02-07 20:00] VITALS: BP 132/72
[2022-02-07 20:30] VITALS: BP 132/72
[2022-02-07] MEDS: GUAIFENESIN/CODEINE 5 ML LIQD PO PRN (20:45)
[2022-02-07] MEDS ORDERED: SODIUM CHLORIDE 0.9% 50ML 50 ML ONE ×2 (20:50→21:05)
[2022-02-07] MEDS ORDERED: WARFARIN SOD 2.5 MG TAB PO SCH (21:45)
[2022-02-07] MEDS ORDERED: POTASSIUM CHLORIDE 20 MEQ TAB CR PO STA (21:53)
[2022-02-07] MEDS: CIPROFLOXACIN HCL (OPTH OINT) 3.5 GM TUBE OP SCH (22:00)
[2022-02-07] MEDS ORDERED: LORAZEPAM 0.5 MG TAB PO PRN (22:00)
[2022-02-07] MEDS: OXYBUTYNIN CHLORIDE XL 5 MG TAB PO SCH (22:00)
[2022-02-07] MEDS ORDERED: ACETAMINOPHEN 325 MG TAB PO PRN (22:00)
[2022-02-07] MEDS ORDERED: Vancomycin IV 1 GM in SODIUM CHLORIDE 0.9% 250ML 250 ML IV ONE (22:00)
[2022-02-07] MEDS ORDERED: ONDANSETRON HCL INJ 2MG/ML 2ML 2 MG/ML VIAL IV PRN (22:00)
[2022-02-07] MEDS ORDERED: ALBUTEROL/IPRATROPIUM 3 ML NEB NEB ONE (22:15)
[2022-02-07] MEDS ORDERED: ALBUTEROL/IPRATROPIUM 3 ML NEB NEB PRN (22:15)
[2022-02-08] VITALS (7 sets, daily range): BP systolic 132–166; BP diastolic 52–78
[2022-02-08] MEDS: PIPERACILLIN/TAZOBACTAM 3.375 GM in SODIUM CHLORIDE 0.9% 50ML 50 ML IV SCH ×3 (05:40→22:10)
[2022-02-08 06:36] LABS: BASOPHILS # (AUTO) 0.1 (0.0-0.1); BASOPHILS % 0.5 % (0.0-1.0); EOSINOPHILS # (AUTO) 0.5 (0.0-0.4); EOSINOPHILS % 5.1 % (0.0-6.0); HEMATOCRIT 34.5 % (34.2-44.1); HEMOGLOBIN 11.6 g/dL (12.0-16.0); LYMPHOCYTES # (AUTO) 1.6 (1.0-3.2); LYMPHOCYTES % 16.7 % (18.0-39.1); MEAN CORPUSCULAR HEMOGLOBIN 31.4 pg (28-32); MEAN CORPUSCULAR HGB CONC 33.6 g/dL (31-35); MEAN CORPUSCULAR VOLUME 93.2 fL (81-99); MONOCYTES # (AUTO) 1.2 (0.2-0.8); NEUTROPHILS # (AUTO) 6.3 (2.1-6.9); NEUTROPHILS % 65.3 % (38.7-80.0); PLATELET COUNT 159 x10e3/uL (140-360); RED CELL DISTRIBUTION WIDTH 12.7 % (11.7-14.4)
[2022-02-08 06:52] LABS: ANION GAP 10.9 mmol/L (8-16); CALCIUM 8.1 mg/dL (8.4-10.2); CREATININE, SERUM 0.89 mg/dL (0.57-1.11)
[2022-02-08 06:54] LABS: INR 3.32
[2022-02-08 06:58] LABS: POTASSIUM 2.9 mmol/L (3.5-5.1)
[2022-02-08 07:01] LABS: CHOL/HDL RATIO 3.4 (3.0-3.6); MAGNESIUM 1.4 MG/DL (1.3-2.1)
[2022-02-08] MEDS ORDERED: POTASSIUM CHLORIDE 20 MEQ TAB CR PO STA (07:37)
[2022-02-08] MEDS ORDERED: MAGNESIUM SULFATE 2GM/50ML 50 ML IV ONE (07:45)
[2022-02-08] MEDS: PANTOPRAZOLE SOD 40 MG TABEC PO SCH ×2 (08:19→16:30)
[2022-02-08] MEDS: SUCRALFATE 1 GM TAB PO SCH ×2 (08:19→16:30)
[2022-02-08] MEDS: AMLODIPINE BESYLATE 5 MG TAB PO SCH (08:20)
[2022-02-08] MEDS: METOPROLOL SUCCINATE 25 MG TAB XL PO SCH (08:20)
[2022-02-08] MEDS: AZITHROMYCIN 250 MG TAB PO SCH (08:21)
[2022-02-08] MEDS: CIPROFLOXACIN HCL (OPTH OINT) 3.5 GM TUBE OP SCH ×2 (09:00→17:00)
[2022-02-08] MEDS ORDERED: CEFTRIAXONE 1 GM in SODIUM CHLORIDE 0.9% 50ML 50 ML IV SCH (09:00)
[2022-02-08] MEDS: BENZONATATE 100 MG CAP PO PRN ×2 (09:00)
[2022-02-08] MEDS: POTASSIUM CHLORIDE 20 MEQ TAB CR PO SCH ×2 (10:00→11:28)
[2022-02-08] MEDS ORDERED: LACTULOSE SYRUP 20 GM/30 ML UDC PO PRN (14:00)
[2022-02-08] MEDS ORDERED: FUROSEMIDE INJ 10 MG/ML 2 ML VIAL IV ONE (14:30)
[2022-02-08] MEDS ORDERED: CLONIDINE HCL 0.1 MG TAB PO PRN (17:15)
[2022-02-08] MEDS ORDERED: FUROSEMIDE INJ 10 MG/ML 4 ML VIAL ONE (17:55)
[2022-02-09] VITALS (7 sets, daily range): BP systolic 135–166; BP diastolic 45–98
[2022-02-09] MEDS: BENZONATATE 100 MG CAP PO PRN (02:19)
[2022-02-09] MEDS: PIPERACILLIN/TAZOBACTAM 3.375 GM in SODIUM CHLORIDE 0.9% 50ML 50 ML IV SCH ×3 (05:15→21:33)
[2022-02-09 06:36] LABS: BASOPHILS # (AUTO) 0.1 (0.0-0.1); BASOPHILS % 0.7 % (0.0-1.0); EOSINOPHILS # (AUTO) 0.6 (0.0-0.4); EOSINOPHILS % 7.6 % (0.0-6.0); HEMATOCRIT 33.8 % (34.2-44.1); HEMOGLOBIN 11.3 g/dL (12.0-16.0); LYMPHOCYTES # (AUTO) 1.6 (1.0-3.2); LYMPHOCYTES % 20.8 % (18.0-39.1); MEAN CORPUSCULAR HEMOGLOBIN 31.6 pg (28-32); MEAN CORPUSCULAR HGB CONC 33.4 g/dL (31-35); MEAN CORPUSCULAR VOLUME 94.4 fL (81-99); MONOCYTES # (AUTO) 0.9 (0.2-0.8); MONOCYTES % 12.3 % (4.4-11.3); NEUTROPHILS # (AUTO) 4.4 (2.1-6.9); NEUTROPHILS % 58.3 % (38.7-80.0); PLATELET COUNT 172 x10e3/uL (140-360); RED BLOOD COUNT 3.58 x10e6/uL (3.6-5.1); RED CELL DISTRIBUTION WIDTH 12.8 % (11.7-14.4)
[2022-02-09 06:50] LABS: INR 4.17
[2022-02-09 07:01] LABS: ANION GAP 10.6 mmol/L (8-16); CALCIUM 8.1 mg/dL (8.4-10.2); CREATININE, SERUM 0.82 mg/dL (0.57-1.11); MAGNESIUM 1.4 MG/DL (1.3-2.1); POTASSIUM 3.6 mmol/L (3.5-5.1)
[2022-02-09] MEDS: PANTOPRAZOLE SOD 40 MG TABEC PO SCH ×2 (08:30→16:41)
[2022-02-09] MEDS: SUCRALFATE 1 GM TAB PO SCH ×2 (08:30→16:41)
[2022-02-09] MEDS: METOPROLOL SUCCINATE 25 MG TAB XL PO SCH (09:00)
[2022-02-09] MEDS: CIPROFLOXACIN HCL (OPTH OINT) 3.5 GM TUBE OP SCH ×2 (09:00→16:41)
[2022-02-09] MEDS: AMLODIPINE BESYLATE 5 MG TAB PO SCH (09:47)
[2022-02-09] MEDS: AZITHROMYCIN 250 MG TAB PO SCH (09:48)
[2022-02-09] MEDS ORDERED: MAGNESIUM SULFATE 2GM/50ML 50 ML IV ONE (10:00)
[2022-02-09] MEDS: ARTIFICIAL TEARS (OPTH) 15 ML BTL OP SCH ×3 (13:29→20:55)
[2022-02-09] MEDS: GUAIFENESIN/CODEINE 5 ML LIQD PO PRN (16:35)
[2022-02-09] MEDS: OXYBUTYNIN CHLORIDE XL 5 MG TAB PO SCH (20:55)
[2022-02-09] MEDS ORDERED: FUROSEMIDE INJ 10 MG/ML 2 ML VIAL IV ONE (21:00)
[2022-02-10] VITALS: BP 192/60
[2022-02-10 01:50] VITALS: BP 192/60
[2022-02-10 04:00] VITALS: BP 179/71
[2022-02-10] MEDS: PIPERACILLIN/TAZOBACTAM 3.375 GM in SODIUM CHLORIDE 0.9% 50ML 50 ML IV SCH (05:28)
[2022-02-10] MEDS: GUAIFENESIN/CODEINE 5 ML LIQD PO PRN (05:35)
[2022-02-10 06:16] LABS: INR 3.37; PROTHROMBIN TIME 36.4 seconds (11.9-14.5)
[2022-02-10 08:35] VITALS: BP 128/62
[2022-02-10] MEDS: SUCRALFATE 1 GM TAB PO SCH (09:17)
[2022-02-10] MEDS: AMLODIPINE BESYLATE 5 MG TAB PO SCH (09:18)
[2022-02-10] MEDS: ARTIFICIAL TEARS (OPTH) 15 ML BTL OP SCH (09:18)
[2022-02-10] MEDS: PANTOPRAZOLE SOD 40 MG TABEC PO SCH (09:18)
[2022-02-10] MEDS: METOPROLOL SUCCINATE 25 MG TAB XL PO SCH (09:19)
[2022-02-10] MEDS: AZITHROMYCIN 250 MG TAB PO SCH (09:19)
[2022-02-10] MEDS: BENZONATATE 100 MG CAP PO PRN (09:20)
[2022-02-10] MEDS: CIPROFLOXACIN HCL (OPTH OINT) 3.5 GM TUBE OP SCH (09:31)
[2022-02-10] MEDS ORDERED: VIBRAMYCIN100 MG PO (09:57)
[2022-02-10 10:03] VITALS: BP 128/62
[2022-02-10 11:46] VITALS: BP 135/55
== END 2022-02-10 14:25 | disposition home or self-care (01) | DRG 871 ==
LOC: ER 17:25 → ERHOLD 20:05 → MED/SURG3 20:15
PROVIDERS: ADMIT Internal Medicine; ATTEND Internal Medicine
DX: A41.9 Sepsis, unspecified organism (principal); J18.9 Pneumonia, unspecified organism; N39.0 Urinary tract infection, site not specified; Z68.41 Body mass index [BMI] 40.0-44.9, adult; E87.6 Hypokalemia; H10.9 Unspecified conjunctivitis; E66.01 Morbid (severe) obesity due to excess calories; R77.8 Other specified abnormalities of plasma proteins; K22.2 Esophageal obstruction; Z86.718 Personal history of other venous thrombosis and embolism; Z79.01 Long term (current) use of anticoagulants; I10 Essential (primary) hypertension; Z20.822 Contact with and (suspected) exposure to COVID-19; R79.1 Abnormal coagulation profile; Z86.16 Personal history of COVID-19; Z95.828 Presence of other vascular implants and grafts; Z88.8 Allergy status to other drugs, medicaments and biological substances
CPT/HCPCS: 36415; 71045; 80048; 80053; 80061; 81001; 83605; 83735; 83880; 84484; 85025; 85610; 87040; 87081; 93005; 93306; 94640; 94799; 99284; J0696; J1885; J1940; J2543; J3370; J3475; J7030; J7050; U0002

== ENCOUNTER 2022-07-07 06:21 | Emergency (ER) | payer MEDICARE ==
[~2022-07-07] VITALS: Ht 157.5 cm; Wt 114.3 kg
[~2022-07-07 06:21] MED LIST changes: +VIBRAMYCIN100 MG PO
[2022-07-07] MEDS ORDERED: LIFESTYLECOMFO1 EACH TOP (06:54)
== END 2022-07-07 07:08 | disposition home or self-care (01) ==
LOC: ER 06:28
DX: R60.9 Edema, unspecified (principal); B35.1 Tinea unguium; I10 Essential (primary) hypertension; E11.9 Type 2 diabetes mellitus without complications; I50.9 Heart failure, unspecified; F41.9 Anxiety disorder, unspecified; K21.9 Gastro-esophageal reflux disease without esophagitis; Z86.718 Personal history of other venous thrombosis and embolism
CPT/HCPCS: 99283

== ENCOUNTER 2022-08-17 18:57 | Observation (INO) | payer MEDICARE ==
[~2022-08-17] VITALS: Ht 157.5 cm; Wt 114.3 kg
[~2022-08-17 18:57] MED LIST changes: +LIFESTYLECOMFO1 EACH TOP
[2022-08-17] MEDS ORDERED: FAMOTIDINE 20 MG/2 ML VIAL IV STA (19:03)
[2022-08-17] MEDS ORDERED: ASPIRIN 325 MG TAB PO STA (19:06)
[2022-08-17 19:21] LABS: BASOPHILS # (AUTO) 0.1 (0.0-0.1); BASOPHILS % 0.6 % (0.0-1.0); EOSINOPHILS # (AUTO) 0.2 (0.0-0.4); EOSINOPHILS % 2.8 % (0.0-6.0); HEMATOCRIT 40.1 % (34.2-44.1); HEMOGLOBIN 12.9 g/dL (12.0-16.0); LYMPHOCYTES # (AUTO) 3.2 (1.0-3.2); LYMPHOCYTES % 40.4 % (18.0-39.1); MEAN CORPUSCULAR HEMOGLOBIN 30.8 pg (28-32); MEAN CORPUSCULAR HGB CONC 32.2 g/dL (31-35); MEAN CORPUSCULAR VOLUME 95.7 fL (81-99); MONOCYTES # (AUTO) 0.7 (0.2-0.8); MONOCYTES % 9.2 % (4.4-11.3); NEUTROPHILS # (AUTO) 3.7 (2.1-6.9); NEUTROPHILS % 46.9 % (38.7-80.0); PLATELET COUNT 180 x10e3/uL (140-360); RED BLOOD COUNT 4.19 x10e6/uL (3.6-5.1); RED CELL DISTRIBUTION WIDTH 12.6 % (11.7-14.4)
[2022-08-17 19:38] LABS: ALBUMIN 3.7 g/dL (3.5-5.0); ALBUMIN/GLOBULIN RATIO 1.1 (0.8-2.0); ANION GAP 18.2 mmol/L (8-16); CALCIUM 9.3 mg/dL (8.4-10.2); CREATININE, SERUM 1.01 mg/dL (0.57-1.11); POTASSIUM 3.2 mmol/L (3.5-5.1)
[2022-08-17] MEDS ORDERED: LORAZEPAM 1 MG TAB PO STA (20:02)
[2022-08-17] MEDS ORDERED: ONDANSETRON HCL INJ 2MG/ML 2ML 2 MG/ML VIAL IV PRN (20:15)
[2022-08-17] MEDS ORDERED: Morphine 4mg INJECTION 4 MG/ML INJ IV PRN (20:15)
[2022-08-17] MEDS ORDERED: ENOXAPARIN SODIUM INJ 100 MG/ML SYR SC ONE (21:00)
[2022-08-18] VITALS (7 sets, daily range): BP systolic 127–166; BP diastolic 53–71
[2022-08-18] MEDS ORDERED: ACETAMINOPHEN 325 MG TAB PO PRN (06:15)
[2022-08-18 06:35] LABS: BASOPHILS % 0.5 % (0.0-1.0); EOSINOPHILS # (AUTO) 0.2 (0.0-0.4); HEMOGLOBIN 11.6 g/dL (12.0-16.0); LYMPHOCYTES # (AUTO) 1.8 (1.0-3.2); LYMPHOCYTES % 31.1 % (18.0-39.1); MEAN CORPUSCULAR HEMOGLOBIN 30.9 pg (28-32); MEAN CORPUSCULAR HGB CONC 32.2 g/dL (31-35); MEAN CORPUSCULAR VOLUME 95.7 fL (81-99); MONOCYTES # (AUTO) 0.6 (0.2-0.8); MONOCYTES % 10.4 % (4.4-11.3); NEUTROPHILS # (AUTO) 3.1 (2.1-6.9); NEUTROPHILS % 53.8 % (38.7-80.0); PLATELET COUNT 148 x10e3/uL (140-360); RED BLOOD COUNT 3.76 x10e6/uL (3.6-5.1); RED CELL DISTRIBUTION WIDTH 12.5 % (11.7-14.4)
[2022-08-18 06:51] LABS: ALBUMIN 3.1 g/dL (3.5-5.0); ALBUMIN/GLOBULIN RATIO 1.1 (0.8-2.0); ANION GAP 15.9 mmol/L (8-16); CALCIUM 8.2 mg/dL (8.4-10.2); CREATININE, SERUM 0.78 mg/dL (0.57-1.11)
[2022-08-18 06:52] LABS: POTASSIUM 2.9 mmol/L (3.5-5.1)
[2022-08-18 06:59] LABS: CREATINE KINASE MB 1.3 ng/mL (0-5.0)
[2022-08-18] MEDS ORDERED: POTASSIUM CHLORIDE 10MEQ EA PO ONE ×2 (07:00→10:45)
[2022-08-18] MEDS ORDERED: LORAZEPAM 0.5 MG TAB PO PRN (10:15)
[2022-08-18 10:38] LABS: CHOL/HDL RATIO 3.5 (3.0-3.6)
[2022-08-18 10:58] LABS: THYROID STIMULATING HORMONE 1.083 uIU/mL (0.350-4.940)
[2022-08-18] MEDS ORDERED: AMLODIPINE BESYLATE 5 MG TAB PO SCH (11:00)
[2022-08-18] MEDS ORDERED: METOPROLOL SUCCINATE 25 MG TAB XL PO SCH (11:00)
[2022-08-18] MEDS ORDERED: FUROSEMIDE INJ 10 MG/ML 4 ML VIAL IV SCH (12:30)
[2022-08-18 15:43] LABS: CREATINE KINASE MB 1.5 ng/mL (0-5.0)
[2022-08-18] MEDS ORDERED: PANTOPRAZOLE SOD 40 MG TABEC PO SCH (16:30)
[2022-08-18] MEDS ORDERED: SUCRALFATE 1 GM TAB PO SCH (17:00)
[2022-08-18] MEDS ORDERED: ONDANSETRON HCL 4 MG ORAL DISINTEGRATING TAB PO PRN (18:45)
[2022-08-18] MEDS ORDERED: OXYBUTYNIN CHLORIDE XL 5 MG TAB PO SCH (21:00)
[2022-08-19] MEDS ORDERED: FUROSEMIDE 40 MG TAB PO SCH (09:00)
== END 2022-08-18 18:59 | disposition home or self-care (01) ==
LOC: ER 19:00 → ERHOLD 20:02 → MED/SURG3 22:32
PROVIDERS: ADMIT Internal Medicine; ATTEND Internal Medicine
DX: R07.89 Other chest pain (principal); K21.9 Gastro-esophageal reflux disease without esophagitis; F41.9 Anxiety disorder, unspecified; E66.01 Morbid (severe) obesity due to excess calories; Z68.42 Body mass index [BMI] 45.0-49.9, adult; Z86.718 Personal history of other venous thrombosis and embolism; Z79.01 Long term (current) use of anticoagulants; R77.8 Other specified abnormalities of plasma proteins; Z20.822 Contact with and (suspected) exposure to COVID-19; Z95.828 Presence of other vascular implants and grafts
CPT/HCPCS: 36415 ×2; 71045; 80053 ×2; 80061; 82550 ×2; 82553 ×2; 82948; 83690; 83735; 83880; 84443; 84484 ×2; 85025 ×2; 85379; 93005; 99284; G0378 ×2; J1940; J2405; S0164; U0002

== ENCOUNTER 2022-08-29 08:46 | Emergency (ER) | payer MEDICARE ==
[~2022-08-29] VITALS: Ht 157.5 cm; Wt 114.3 kg
[2022-08-29] MEDS ORDERED: LIDOCAINE VISC 2% SOLN 15 ML UDC PO ONE (09:30)
[2022-08-29] MEDS ORDERED: MAGNESIUM/ALUMINUM/SIMETHICONE 30 ML UDC PO ONE (09:30)
[2022-08-29] MEDS ORDERED: BELLADONNA ALK/PHENOBARBITAL 5 ML UDC PO ONE (09:30)
[2022-08-29] MEDS ORDERED: SODIUM CHLORIDE 0.9% 500ML 500 ML IV ONE (09:45)
[2022-08-29 09:49] LABS: BASOPHILS # (AUTO) 0.1 (0.0-0.1); EOSINOPHILS # (AUTO) 0.2 (0.0-0.4); EOSINOPHILS % 2.9 % (0.0-6.0); HEMATOCRIT 38.5 % (34.2-44.1); HEMOGLOBIN 13.2 g/dL (12.0-16.0); LYMPHOCYTES # (AUTO) 1.6 (1.0-3.2); LYMPHOCYTES % 26.7 % (18.0-39.1); MEAN CORPUSCULAR HEMOGLOBIN 30.8 pg (28-32); MEAN CORPUSCULAR HGB CONC 34.3 g/dL (31-35); MONOCYTES # (AUTO) 0.5 (0.2-0.8); MONOCYTES % 8.3 % (4.4-11.3); NEUTROPHILS # (AUTO) 3.5 (2.1-6.9); NEUTROPHILS % 60.8 % (38.7-80.0); PLATELET COUNT 180 x10e3/uL (140-360); RED BLOOD COUNT 4.28 x10e6/uL (3.6-5.1); RED CELL DISTRIBUTION WIDTH 12.6 % (11.7-14.4)
[2022-08-29 10:23] LABS: ALBUMIN 3.7 g/dL (3.5-5.0); ALBUMIN/GLOBULIN RATIO 1.1 (0.8-2.0); ANION GAP 16.9 mmol/L (8-16); CALCIUM 8.8 mg/dL (8.4-10.2); CREATININE, SERUM 0.95 mg/dL (0.57-1.11); INR 2.25; MAGNESIUM 1.5 MG/DL (1.3-2.1); PROTHROMBIN TIME 26.6 seconds (11.9-14.5)
[2022-08-29 10:24] LABS: PARTIAL THROMBOPLASTIN TIME 39.4 seconds (23.8-35.5); POTASSIUM 2.9 mmol/L (3.5-5.1)
[2022-08-29] MEDS ORDERED: POTASSIUM CHLORIDE 20 MEQ TAB CR PO NR (10:30)
[2022-08-29 10:31] LABS: CREATINE KINASE MB 1.4 ng/mL (0-5.0)
[2022-08-29] MEDS ORDERED: IOPAMIDOL 370 MG/ML 100 ML INFUS..BTL INJ ONE (10:39)
[2022-08-29] MEDS ORDERED: CARAFATE1 GM PO (12:27)
[2022-08-29] MEDS ORDERED: NEXIUM40 MG PO (12:27)
[2022-08-29] MEDS ORDERED: POTASSIUM CHLO20 ME1 PO (12:31)
[2022-08-29 12:53] VITALS: BP 124/83
== END 2022-08-29 12:43 | disposition home or self-care (01) ==
LOC: ER 09:02
DX: R10.13 Epigastric pain (principal); K29.70 Gastritis, unspecified, without bleeding; K21.9 Gastro-esophageal reflux disease without esophagitis; R77.8 Other specified abnormalities of plasma proteins; E87.6 Hypokalemia; I10 Essential (primary) hypertension; I50.9 Heart failure, unspecified; F41.9 Anxiety disorder, unspecified; R94.31 Abnormal electrocardiogram [ECG] [EKG]; Z86.718 Personal history of other venous thrombosis and embolism
CPT/HCPCS: 36415; 74177; 80053; 82550; 82553; 83690; 83735; 83880; 84484; 85025; 85610; 85730; 93005; 99284; C9113; J7040; Q9967

== ENCOUNTER 2022-12-24 10:03 | Emergency (ER) | payer MEDICARE ==
[~2022-12-24 10:03] MED LIST changes: +CARAFATE1 GM PO; +NEXIUM40 MG PO; +POTASSIUM CHLO20 ME1 PO
[2022-12-24] MEDS ORDERED: ACETAMINOPHEN500 MG PO (10:43)
== END 2022-12-24 11:06 | disposition home or self-care (01) ==
LOC: FSED 10:16
DX: R68.83 Chills (without fever) (principal); R11.0 Nausea; I10 Essential (primary) hypertension; I50.9 Heart failure, unspecified; F41.9 Anxiety disorder, unspecified; K21.9 Gastro-esophageal reflux disease without esophagitis; Z86.718 Personal history of other venous thrombosis and embolism; Z87.19 Personal history of other diseases of the digestive system
CPT/HCPCS: 81003; 87086; 99283

== ENCOUNTER 2023-08-21 08:02 | Emergency (ER) | payer MEDICARE, OTHER ==
[~2023-08-21] VITALS: Ht 157.5 cm; Wt 117.0 kg
[~2023-08-21 08:02] MED LIST changes: +ACETAMINOPHEN500 MG PO
[2023-08-21 08:14] VITALS: O2SAT 100
[2023-08-21] MEDS ORDERED: PREDNISONE20 MG PO (10:29)
== END 2023-08-21 11:17 | disposition home or self-care (01) ==
LOC: ER 08:12
DX: J34.3 Hypertrophy of nasal turbinates (principal); I10 Essential (primary) hypertension; I50.9 Heart failure, unspecified; K21.9 Gastro-esophageal reflux disease without esophagitis; F41.9 Anxiety disorder, unspecified; Z86.718 Personal history of other venous thrombosis and embolism; Z87.19 Personal history of other diseases of the digestive system
CPT/HCPCS: 70486; 99283

== ENCOUNTER 2024-07-17 18:56 | Emergency (ER) | payer MEDICARE ==
[~2024-07-17] VITALS: Ht 157.5 cm; Wt 109.3 kg
[~2024-07-17 18:56] MED LIST changes: +CIPRO500 MG PO; +DEXAMETHASONE4 MG PO; +LASIX20 MG PO; +PREDNISONE20 MG PO; +SPIRONOLACTONE25 MG PO
[2024-07-17 19:04] VITALS: TEMP 99.2
[2024-07-17 20:14] LABS: BASOPHILS % 0.2 % (0.0-1.0); EOSINOPHILS % 0.2 % (0.0-6.0); HEMATOCRIT 37.4 % (34.2-44.1); HEMOGLOBIN 12.2 g/dL (12.0-16.0); LYMPHOCYTES # (AUTO) 0.3 (1.0-3.2); LYMPHOCYTES % 2.6 % (18.0-39.1); MEAN CORPUSCULAR HEMOGLOBIN 30.1 pg (28-32); MEAN CORPUSCULAR HGB CONC 32.6 g/dL (31-35); MEAN CORPUSCULAR VOLUME 92.3 fL (81-99); MONOCYTES # (AUTO) 0.2 (0.2-0.8); MONOCYTES % 1.3 % (4.4-11.3); NEUTROPHILS # (AUTO) 11.6 (2.1-6.9); NEUTROPHILS % 95.4 % (38.7-80.0); PLATELET COUNT 150 x10e3/uL (140-360); RED BLOOD COUNT 4.05 x10e6/uL (3.6-5.1); RED CELL DISTRIBUTION WIDTH 13.2 % (11.7-14.4); WHITE BLOOD COUNT 12.11 x10e3/uL (4.8-10.8)
[2024-07-17 20:16] LABS: CLARITY,URINE HAZY (CLEAR); COLOR,URINE YELLOW (YELLOW); GLUCOSE, URINE NEGATIVE (NEGATIVE); KETONES,URINE NEGATIVE (NEGATIVE); LEUKOCYTE ESTERASE ,URINE SMALL (NEGATIVE); NITRITE,URINE POSITIVE (NEGATIVE); PH,URINE 7 (5 - 7); PROTEIN,URINE DIPSTICK 1+ (NEGATIVE); URINE UROBILINOGEN 0.2 mg/dL (0.2 - 1)
[2024-07-17 20:17] LABS: BILIRUBIN,URINE NEGATIVE (NEGATIVE)
[2024-07-17 20:29] LABS: ALBUMIN 3.6 g/dL (3.5-5.0); ALBUMIN/GLOBULIN RATIO 1.2 (0.8-2.0); AMORPHOUS SEDIMENT,URINE MODERATE (FEW); ANION GAP 16.9 mmol/L (8-16); BACTERIA,URINE MODERATE /HPF; BILIRUBIN,TOTAL 1.2 mg/dL (0.2-1.2); CALCIUM 9.2 mg/dL (8.4-10.2); CREATININE, SERUM 1.43 mg/dL (0.57-1.11); EPITHELIAL CELLS,URINE MODERATE /LPF; POTASSIUM 3.9 mmol/L (3.5-5.1); TOTAL PROTEIN 6.7 g/dL (6.5-8.1); WBC,URINE (MAN) 21-50 /HPF (0-5)
[2024-07-17 20:36] LABS: TROPONIN I 0.638 ng/mL (0-0.300)
[2024-07-17] MEDS ORDERED: IOPAMIDOL 370 MG/ML 100 ML INFUS..BTL INJ ONE (20:57)
[2024-07-17] MEDS ORDERED: CIPRO500 MG PO (22:39)
[2024-07-17 23:10] VITALS: PULSE 84; RESP 18; O2SAT 95
[2024-07-17] MEDS ORDERED: CEPHALEXIN500 MG PO (23:14)
== END 2024-07-17 23:14 | disposition home or self-care (01) ==
LOC: ER 18:58
DX: R50.9 Fever, unspecified (principal); N39.0 Urinary tract infection, site not specified; R79.89 Other specified abnormal findings of blood chemistry; Z11.52 Encounter for screening for COVID-19; R94.31 Abnormal electrocardiogram [ECG] [EKG]
CPT/HCPCS: 36415; 71045; 71260; 80053; 81001; 82550; 83690; 83880; 84484; 85025; 87400; 93005; 99284; Q9967; U0002